=== PATIENT | female | born 2000 | race Caucasian/White ===

== ENCOUNTER 2018-08-19 20:17 | Emergency (ER) | payer OTHER ==
[~2018-08-19] VITALS: Ht 157.5 cm; Wt 55.8 kg
--- NOTE | 2018-08-19 20:28 | ED.ADGEN ---
Adult General Chief Complaint Chief Complaint ".. I got this bug bite on my Rt. Leg.. I went to [place].. but it not better.. 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 Pt. works in the [employer] shop at [place]. No overseas travel or specific ill contact.s Vaccination up to date. Patient has 4 insect bites on right bond. There is one pointing abscess. There is no adenopathy or striations. Review of Systems Review of Systems Constitutional: Denies fever or chills [] Eyes: Denies change in visual acuity, redness, or eye pain [] HENT: Denies nasal congestion or sore throat [] Respiratory: Denies cough or shortness of breath [] Cardiovascular: No additional information not addressed in HPI [] GI: Denies abdominal pain, nausea, vomiting, bloody stools or diarrhea [] : Denies dysuria or hematuria [] Musculoskeletal: Denies back pain or joint pain [] Integument: Insect bites right bond area Neurologic: Denies headache, focal weakness or sensory changes [] Endocrine: Denies polyuria or polydipsia [] All other systems were reviewed and found to be within normal limits, except as documented in this note. Family History Family History Noncontributory Current Medications Current Medications Current Medications Medications (Trade) Dose Ordered Sig/Christina Start Time Stop Time Status Last Admin Dose Admin Trimethoprim/ Sulfamethoxazole (Bactrim Ds) 1 tab 1X ONCE 08/19/18 21:00 08/19/18 21:04 DC 08/19/18 21:17 1 TAB Allergies Allergies Allergies Coded Allergies Type Severity Reaction Last Updated Verified No Known Drug Allergies 08/19/18 No Physical Exam Physical Exam Constitutional: Well developed, well nourished, mild distress, non-toxic appearance. [] HENT: Normocephalic, atraumatic, bilateral external ears normal, oropharynx moist, no oral exudates, nose normal. [] Eyes: PERRLA, EOMI, conjunctiva normal, no discharge. [] Neck: Normal range of motion, no tenderness, supple, no stridor. [] Cardiovascular:Heart rate regular rhythm, no murmur [] Lungs & Thorax: Bilateral breath sounds clear to auscultation [] Abdomen: Bowel sounds normal, soft, no tenderness, no masses, no pulsatile masses. [] Skin: Warm, dry, no erythema, no rash. [] Except noted insect bites and cellulitis right leg Back: No tenderness, no CVA tenderness. [] Extremities: No tenderness, no cyanosis, no clubbing, ROM intact, no edema. [] Neurologic: Alert and oriented X 3, normal motor function, normal sensory function, no focal deficits noted. [] Psychologic: Affect normal, judgement normal, mood normal. [] Current Patient Data Vital Signs Vital Signs Date Time Temp Pulse Resp B/P (MAP) Pulse Ox O2 Delivery O2 Flow Rate FiO2 08/19/ 20:30 98.0 55 16 99 Room Air EKG EKG [] Radiology/Procedures Radiology/Procedures [] Course & Med Decision Making Course & Med Decision Making Pertinent Labs and Imaging studies reviewed. (See chart for details) Incision and drainage-pointing abscess cleaned with Betadine and last with a 11 blade with removal of small amount of pus. Dressing applied. Patient massage area were Polysporin 4 times a day. Patient take Bactrim DS twice a day for 7 days. Patient follow-up primary care. Patient take Tylenol ibuprofen for discomfort. Return if any concerns. [] Final Impression Final Impression 1. Insect Bites 2. Cellulitis[]/ Abscess Dragon Disclaimer Dragon Disclaimer This electronic medical record was generated, in whole or in part, using a voice recognition dictation system. JUANJO DEWITT MD Aug 19, 2018 20:28
[2018-08-19 20:30] VITALS: BP 118/63
[2018-08-19] MEDS ORDERED: SMZ/TMP 800/160MG TABLET. PO ONE (21:00)
[2018-08-19] MEDS ORDERED: SULF1TAB24 PO (21:05)
[2018-08-19] MEDS ORDERED: BACI28.34 TP (21:05)
[2018-08-19] MEDS ORDERED: IBUP400T18 PO (21:05)
== END 2018-08-19 21:20 | disposition home or self-care (01) ==
LOC: ER 20:17
DX: S80.861A Insect bite (nonvenomous), right lower leg, initial encounter (principal); L03.115 Cellulitis of right lower limb; L02.415 Cutaneous abscess of right lower limb; W57.XXXA Bitten or stung by nonvenomous insect and other nonvenomous arthropods, initial encounter; Y93.89 Activity, other specified; Y92.89 Other specified places as the place of occurrence of the external cause; Y99.8 Other external cause status
CPT/HCPCS: 10060; 99283

== ENCOUNTER 2019-06-20 12:11 | Emergency (ER) | payer OTHER ==
[~2019-06-20] VITALS: Ht 157.5 cm; Wt 58.5 kg
[~2019-06-20 12:11] MED LIST: BACI28.34 TP; IBUP400T18 PO; SULF1TAB24 PO
[2019-06-20 12:15] VITALS: BP 122/75
--- NOTE | 2019-06-20 13:15 | PHYS DOC ---
Past History Past Medical History: No Pertinent History Past Surgical History: Other Alcohol Use: None Drug Use: None Adult General Chief Complaint Chief Complaint: TEST HPI HPI 19-year-old female presents with concern for . The patient took 2 home tests were positive. She wants to make sure she is . She does not currently feel like she can be apparent. She would like to discuss terminating this . She has no other complaints. Review of Systems Review of Systems Constitutional: Denies fever or chills [] Eyes: Denies change in visual acuity, redness, or eye pain [] HENT: Denies nasal congestion or sore throat [] Respiratory: Denies cough or shortness of breath [] Cardiovascular: No additional information not addressed in HPI [] GI: Denies abdominal pain, nausea, vomiting, bloody stools or diarrhea [] : Denies dysuria or hematuria [] Musculoskeletal: Denies back pain or joint pain [] Integument: Denies rash or skin lesions [] Neurologic: Denies headache, focal weakness or sensory changes [] Endocrine: Denies polyuria or polydipsia [] All other systems were reviewed and found to be within normal limits, except as documented in this note. Allergies Allergies Allergies Coded Allergies Type Severity Reaction Last Updated Verified No Known Drug Allergies 08/19/18 No Physical Exam Physical Exam Constitutional: Well developed, well nourished, no acute distress, non-toxic appearance. [] HENT: Normocephalic, atraumatic, bilateral external ears normal, oropharynx moist, no oral exudates, nose normal. [] Eyes: PERRLA, EOMI, conjunctiva normal, no discharge. [] Neck: Normal range of motion, no tenderness, supple, no stridor. [] Cardiovascular:Heart rate regular rhythm, no murmur [] Lungs & Thorax: Bilateral breath sounds clear to auscultation [] Abdomen: Bowel sounds normal, soft, no tenderness, no masses, no pulsatile masses. [] Skin: Warm, dry, no erythema, no rash. [] Back: No tenderness, no CVA tenderness. [] Extremities: No tenderness, no cyanosis, no clubbing, ROM intact, no edema. [] Neurologic: Alert and oriented X 3, normal motor function, normal sensory function, no focal deficits noted. [] Psychologic: Affect normal, judgement normal, mood normal. [] Current Patient Data Lab Results Laboratory Tests Test 06/20/19 12:34 POC Urine HCG, Qualitative hcg positive (Negative) EKG EKG [] Radiology/Procedures Radiology/Procedures [] Course & Med Decision Making Course & Med Decision Making Pertinent Labs and Imaging studies reviewed. (See chart for details) The patient's test is positive. I discussed potential options for the patient including medication , manual , adoption, and carrying baby to term and becoming a mother. I explained to her that I do not manage patient's for this request out of the emergency room. She must consult with an OB or family practice person who is comfortable with these medications and procedures. I stressed to the patient that she needed to take a few days and make the decision for herself. She stated verbal understanding. She is stable for discharge at this time.[] Dragon Disclaimer Dragon Disclaimer This electronic medical record was generated, in whole or in part, using a voice recognition dictation system. Departure Departure: Impression: Primary Impression: Disposition: 01 HOME, SELF-CARE Condition: STABLE Patient Instructions: - First Trimester Problem Qualifiers Primary Impression: Weeks of gestation: less than 8 weeks Qualified Codes: Z3A.01 - Less than 8 weeks gestation of NICHOLE GALLEGO DO Jun 20, 2019 13:15
== END 2019-06-20 13:18 | disposition home or self-care (01) ==
LOC: ER 12:11
DX: Z32.01 Encounter for pregnancy test, result positive (principal)
CPT/HCPCS: 81025; 99282